=== PATIENT | male | born 1985 | race Two or more races ===

== ENCOUNTER 2019-05-10 11:20 | Emergency (ER) | payer SELFPAY ==
[~2019-05-10] VITALS: Ht 167.6 cm; Wt 68.0 kg
[2019-05-10 11:25] VITALS: BP 145/78
[2019-05-10] MEDS ORDERED: PRED-220 PO (11:45)
[2019-05-10] MEDS ORDERED: GABA300C18 PO (11:45)
[2019-05-10] MEDS ORDERED: ACYC800T PO (11:45)
[2019-05-10] MEDS ORDERED: TRAM50TA PO (11:45)
--- NOTE | 2019-05-10 11:46 | PHYS DOC ---
Past Medical History Past Medical History: No Pertinent History (DEE HAMILTON APRN) Past Surgical History: No Surgical History (DEE HAMILTON APRN) Alcohol Use: Occasionally Drug Use: None (DEE HAMILTON APRN) Attending Signature I have participated in the care of this patient and I have reviewed and agree with all pertinent clinical information above including history, exam, and recommendations. (TRISTIAN HORNER MD) Adult General Chief Complaint Chief Complaint: SKIN RASH/ABSCESS HPI HPI Patient is a 33 year old Pashto-speaking male who presents to the ED today with a blister rash that began 4 days ago. Patient denies any fever Senior Compensation Consultant line was used for Pashto (DEE HAMILTON APRN) Review of Systems Review of Systems Constitutional: Denies fever or chills [] Musculoskeletal: Denies back pain or joint pain [] Integument: Reports rash Neurologic: Denies headache, focal weakness or sensory changes [] All other systems were reviewed and found to be within normal limits, except as documented in this note. (DEE HAMILTON APRN) Allergies Allergies Allergies Coded Allergies Type Severity Reaction Last Updated Verified No Known Drug Allergies 05/10/19 No (TRISTIAN HORNER MD) Physical Exam Physical Exam Constitutional: Well developed, well nourished, no acute distress, non-toxic appearance. [] Skin: Warm, dry, mild amount of erythematous blistery rash in patient's right scapular and right forearm consistent with shingles. Back: No tenderness, no CVA tenderness. [] Extremities: No tenderness, no cyanosis, no clubbing, ROM intact, no edema. [] Neurologic: Alert and oriented X 3, normal motor function, normal sensory function, no focal deficits noted. [] Psychologic: Affect normal, judgement normal, mood normal. [] (DEE HAMILTON APRN) Current Patient Data Vital Signs Vital Signs Date Time Temp Pulse Resp B/P (MAP) Pulse Ox O2 Delivery O2 Flow Rate FiO2 05/10/19 11:25 98.9 96 17 145/78 (100) 99 Room Air 98.9 (TRISTIAN HORNER MD) EKG EKG [] (DEE HAMILTON APRN) Radiology/Procedures Radiology/Procedures [] (DEE HAMILTON APRN) Course & Med Decision Making Course & Med Decision Making Pertinent Labs and Imaging studies reviewed. (See chart for details) This is a 33-year-old male patient who presents to the ED today with shingles. Discharged on acyclovir, prednisone, tramadol for pain. Follow-up with PCP in 2- 4 weeks. (DEE HAMILTON APRN) Dragon Disclaimer Dragon Disclaimer This electronic medical record was generated, in whole or in part, using a voice recognition dictation system. (DEE HAMILTON APRN) Departure Departure Impression: Primary Impression: Shingles Disposition: HOME, SELF-CARE Condition: STABLE Referrals: NO PCP (PCP) PATRICIA GARCIA MD follow up in 2-4 weeks Patient Instructions: Shingles, [id number] Additional Instructions: You were evaluated and noted for have shingles. Take the prescribed medications as ordered. Avoid skin contact with women and children because this rash is contagious. Scripts Tramadol Hcl (TRAMADOL HCL) 50 Mg Tablet 50 MG PO Q6HRS PRN for PAIN, #30 TAB Prov: DEE HAMILTON APRN 05/10/19 Gabapentin (GABAPENTIN ) 300 Mg Capsule 300 MG PO TID for NEUROGENIC PAIN, #30 CAP Prov: DEE HAMILTON APRN 05/10/19 Prednisone (PREDNISONE ) 10 Mg Tablet 10 MG PO UD for PREDNISONE TAPER, #39 TAB 0 Refills Take 3 tablets by mouth twice a day for 3 days, then take 2 tablets by mouth twice a day for 3 days, then take 1 tablet by mouth twice a day for 3 days, then take 1 tablet by mouth daily x 3 days, then stop. Prov: DEE HAMILTON APRN 05/10/19 Acyclovir (ACYCLOVIR) 800 Mg Tablet 1 TAB PO 5XDAY, #50 TAB Prov: DEE HAMILTON APRN 05/10/19 Problem Qualifiers Primary Impression: Shingles Herpes zoster complications: without complications Qualified Codes: B02.9 - Zoster without complications DEE HAMILTON APRN May 10, 2019 11:46 TRISTIAN HORNER MD May 10, 2019 17:17
== END 2019-05-10 11:50 | disposition home or self-care (01) ==
LOC: ER 11:20
DX: B02.9 Zoster without complications (principal)
CPT/HCPCS: 99283

== ENCOUNTER 2020-12-11 17:34 | Emergency (ER) | payer SELFPAY ==
[~2020-12-11] VITALS: Ht 172.7 cm; Wt 80.0 kg
[~2020-12-11 17:34] MED LIST: ACYC800T88 PO; GABA300C18 PO; PRED-220 PO; TRAM50TA PO
[2020-12-11] MEDS ORDERED: ALBUTEROL SULFATE 2.5 MG/3 ML NEBU. NEB ONE (19:15)
[2020-12-11] MEDS ORDERED: IPRATROPIUM BROMIDE 0.5 MG/2.5 ML NEBU. NEB ONE (19:15)
[2020-12-11] MEDS ORDERED: predniSONE 10 MG TABLET PO ONE (19:30)
[2020-12-11] MEDS ORDERED: IPRATRPIUM/ALBUTEROL 0.5/2.5MG 3 ML NEBU. NEB ONE (20:00)
[2020-12-11] MEDS ORDERED: ALBU2.5V8 IH (20:37)
[2020-12-11] MEDS ORDERED: PRED50TA PO (20:37)
--- NOTE | 2020-12-11 20:38 | ED.ADGEN ---
Past Medical History Past Medical History: Asthma Additional Past Medical Histor: seasonal allergies Past Surgical History: No Surgical History Smoking Status: Never Smoker Alcohol Use: None Drug Use: None General Adult EDM: Chief Complaint: ASTHMA HPI: HPI: Patient is a 35 year old male, accompanied by his , who presents to the emergency room with complaints of shortness of breath and asthma problems for the last 2 weeks. Patient reports that his albuterol inhaler has been out for the last 4 hours. He reports having nasal congestion sinus pressure with a runny nose and frontal headache. He denies any nausea, vomiting, diarrhea, abdominal pain, chest pain, palpitations, body aches, or fatigue. He denies any fever, or concerns of COVID-19 infection. He currently denies any pain. Review of Systems: Review of Systems: Complete ROS is negative unless otherwise noted in HPI. Current Medications: Current Medications Medications (Trade) Dose Ordered Sig/Bang Start Time Stop Time Status Last Admin Dose Admin Albuterol Sulfate (Ventolin Neb Soln) 2.5 mg 1X ONCE 12/11/20 19:15 12/11/20 19:17 DC 12/11/20 19:53 2.5 MG Albuterol/ Ipratropium (Duoneb) 3 ml 1X ONCE 12/11/20 20:00 12/11/20 20:01 DC Ipratropium [place] (Atrovent) 0.5 mg 1X ONCE 12/11/20 19:15 12/11/20 19:17 DC 12/11/20 19:53 0.5 MG Prednisone (Prednisone) 50 mg 1X ONCE 12/11/20 19:30 12/11/20 19:32 DC 12/11/20 19:36 50 MG Allergies: Allergies: Allergies Coded Allergies Type Severity Reaction Last Updated Verified No Known Drug Allergies 05/10/19 No Physical Exam: PE: See Above Constitutional: Well developed, well nourished, no acute distress, non-toxic appearance. [] HENT: Normocephalic, atraumatic, bilateral external ears normal, nose normal. [] Eyes: PERRLA, EOMI, conjunctiva normal, no discharge. [] Neck: Normal range of motion, no stridor. [] Cardiovascular:Heart rate regular rhythm Lungs & Thorax: Respirations even and unlabored, mild respiratory distress with mild intercostal retractions, mild tachypnea, expiratory wheezes throughout Skin: Warm, dry, no erythema, no rash. [] Extremities: No cyanosis, ROM intact, no edema. [] Neurologic: Alert and oriented X 3, no focal deficits noted. [] Psychologic: Affect normal, judgement normal, mood normal. [] Current Patient Data: Vital Signs: Vital Signs Date Time Temp Pulse Resp B/P (MAP) Pulse Ox O2 Delivery O2 Flow Rate FiO2 12/11/20 21:04 98 20 112/68 (83) 97 Room Air 12/11/20 19:14 98.6 98.6 EKG: EKG: [] Heart Score: C/O Chest Pain: No Risk Scores: Score 0 - 3: 2.5% MACE over next 6 weeks - Discharge Home Score 4 - 6: 20.3% MACE over next 6 weeks - Admit for Clinical Observation Score 7 - 10: 72.7% MACE over next 6 weeks - Early Invasive Strategies Radiology/Procedures: Radiology/Procedures: [] Course & Med Decision Making: Course & Med Decision Making Pertinent Labs and Imaging studies reviewed. (See chart for details) 35-year-old male, presented to emergency department with complaints of increased asthma problems for the last 2 weeks. Patient was given an Atrovent and albuterol treatment in the emergency department he also received 50 mg of p.o. prednisone. The patient reported feeling better after these medications. Prescription was written for an albuterol inhaler with 2 refills and prednisone burst. Encouraged patient to follow-up with his primary care doctor in the next 1 to 2 days, return to the ER if symptoms worsen or fever develop. Patient verbalized an understanding of home care, medications, follow-up, and return to ED instructions and was in agreement with the plan of care. [] The patient was seen and interviewed as well as examined at the bedside. The chart was reviewed. The case was discussed. Agree with the plan of care. Keira Disclaimer: Keira Disclaimer: This electronic medical record was generated, in whole or in part, using a voice recognition dictation system. Departure Departure Impression: Primary Impression: Asthma exacerbation, mild Disposition: HOME / SELF CARE / HOMELESS Condition: STABLE Referrals: NO PCP (PCP) Patient Instructions: Asthma Attacks, Prevention, Asthma, Adult, [id number] Additional Instructions: Fill prescription(s) and use as directed. Avoid airway triggers such as smoke, fragrance, dust, and pollen. Recommend that you take a daily antihistamine such as Zyrtec, Claritin, or Marine. Follow-up with your primary care doctor in 1-2 days, return to the ER if symptoms worsen or fever develops. [facility] [address] [place] [address] [facility] [address] [place] [address] [facility] [address] [place] [address] [facility] [address] [place] [address] On License Of [facility] [address] [place] [address] [facility] [address] [place] [address] [facility] [address] [place] [address] [employer] [facility] [address] [place] [address] [facility] [address] [place] [address] [facility] [address] [place] [address] Scripts Albuterol Sulfate (Proair Hfa) 8.5 Gm Hfa.aer.ad 2 PUFF IH PRN Q4-6HRS PRN for wheezing for 21 Days, #1 INHALER 2 Refills Prov: BRONWYN RENEE RULING MACHINE OPERATOR 12/11/20 Prednisone (PREDNISONE) 50 Mg Tablet 1 TAB PO DAILY for 5 Days, #5 TAB 0 Refills start on 12/12/20 Prov: BRONWYN RENEE RULING MACHINE OPERATOR 12/11/20 BRONWYN RENEE RULING MACHINE OPERATOR December 11, 2020 20:38 JL VIVEROS I DO December 14, 2020 19:00
[2020-12-11 21:04] VITALS: BP 112/68
== END 2020-12-11 21:32 | disposition home or self-care (01) ==
LOC: ER 17:34
DX: J45.901 Unspecified asthma with (acute) exacerbation (principal)
CPT/HCPCS: 94640; 99284; J7512; J7613; J7644